=== PATIENT | female | born 1960 | race Caucasian/White ===

== ENCOUNTER 2021-10-16 05:52 | Day surgery (SDC) | payer OTHER | END 2021-10-16 13:20 | disposition home or self-care (01) | LOC: CIR.AMB 05:52 | PROVIDERS: ATTEND Obstetrics & Gynecology | DX: D25.0 Submucous leiomyoma of uterus (principal); N84.0 Polyp of corpus uteri; Z88.6 Allergy status to analgesic agent; Z88.2 Allergy status to sulfonamides; I10 Essential (primary) hypertension; Z85.3 Personal history of malignant neoplasm of breast ==